=== PATIENT | female | born 1985 ===

== ENCOUNTER 2025-01-11 14:54 | Emergency (ER) | payer SELFPAY ==
[2025-01-11 15:00] VITALS: RESP 20
--- NOTE | 2025-01-11 15:41 | XR ---
EXAMINATION TYPE: XR wrist complete LT DATE OF EXAM: 01/11/2025 3:27 PM COMPARISON: None CLINICAL INDICATION: Female, 39 years old with history of pain, pain TECHNIQUE: XR wrist complete LT; examined in the Frontal, navicular, lateral, and oblique. FINDINGS: No acute osseous pathology, joint dislocation, or joint effusion. No evidence of any soft tissue swelling is seen. IMPRESSION: No acute osseous pathology. [facility], , 01/11/2025 3:39 PM
[2025-01-11] MEDS: ACETAMINOPHEN TAB 500 MG TAB PO STA (15:44)
[2025-01-11] MEDS: IBUPROFEN 800 MG TAB PO STA (15:44)
--- NOTE | 2025-01-11 15:50 | ED ---
Extremity Problem HPI - General Chief complaint: Recheck/Abnormal Lab/Rx Stated complaint: Urogenital Time Seen by Provider: 01/11/25 15:03 Source: patient, RN notes reviewed Mode of arrival: ambulatory Limitations: no limitations - History of Present Illness Initial comments: This is a 39-year-old female who presents to the emergency department problems with breast milk production and left wrist pain. 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 She has an 8-week-old baby that she is providing breast milk for, however because she is in the custody of [facility], they do not have a very good diet, which they believe is causing her milk production to go down. They are requesting a written prescription for a better diet as well as vitamins. Additionally, patient reports left wrist pain for the last couple of days. Denies any injuries. Pain is worse when she tries to move her thumb. - Related Data Previous Rx's Medication Instructions Recorded Acetaminophen Tab [Tylenol Tab] 1,000 mg PO Q6HR PRN #30 tablet 01/11/25 Ibuprofen [Motrin] 800 mg PO Q8H PRN #30 tab 01/11/25 Vit No.179/Iron/Folic 1 each PO DAILY #30 tab 01/11/25 [ Tablet] Allergies Allergy/AdvReac Type Severity Reaction Status Date / Time No Known Allergies Allergy Verified 01/11/25 15:00 Review of Systems ROS Statement: Those systems with pertinent positive or pertinent negative responses have been documented in the HPI. ROS Other: All systems not noted in ROS Statement are negative. Past Medical History Past Medical History: No Reported History History of Any Multi-Drug Resistant Organisms: None Reported Past Surgical History: No Surgical Hx Reported Past Psychological History: No Psychological Hx Reported Smoking Status: Never smoker Past Alcohol Use History: None Reported Past Drug Use History: None Reported General Exam Limitations: no limitations General appearance: alert, in no apparent distress Head exam: Present: atraumatic, normocephalic, normal inspection Respiratory exam: Present: normal lung sounds bilaterally. Absent: respiratory distress, wheezes, rales, rhonchi, stridor Cardiovascular Exam: Present: regular rate, normal rhythm Extremities exam: Present: other (Mild tenderness over the left lateral malleolus. Full range of motion. Positive Peewee test. 2+ radial pulses) Neurological exam: Present: alert, oriented X3, CN II-XII intact Psychiatric exam: Present: normal affect, normal mood Skin exam: Present: warm, dry, intact, normal color. Absent: rash Course Vital Signs 01/11/25 01/11/25 14:57 16:21 Temperature 98 F 98.2 F Pulse Rate 66 72 Respiratory 20 20 Rate Blood Pressure 128/89 126/86 O2 Sat by Pulse 99 99 Oximetry Medical Decision Making - Medical Decision Making This is a 39-year-old female who presents to the emergency department for left wrist pain. Was pt. sent in by a medical professional or institution? @ -No Did you speak to anyone other than the patient for history? @ -[employer] officers advised what they needed written down for her diet. Did you review nursing and triage notes? @ -Yes, and I agree, it is accurate with regards to the patient's symptoms. Were old charts reviewed? @ -No Differential Diagnosis? @ -Differential Musculoskeletal Muscular strain, contusion, ligament sprain, fracture, arthritis, septic arthritis, bursitis, cellulitis, muscle spasm, nerve compression, DVT, arterial occlusion, herpes zoster, electrolyte abnormality, tumor.... This is not meant to be in all inclusive list EKG interpreted by me (3pts min.)? @ -Not obtained X-rays interpreted by me (1pt min.)? @ -X-ray of the left wrist obtained. My interpretation identifies no acute fractures. CT interpreted by me (1pt min.)? @ -Not obtained U/S interpreted by me (1pt. min.)? @ -Not obtained What testing was considered but not performed? (CT, X-rays, U/S, labs)? Why? @ -None What meds were considered but not given? Why? @ -None Did you discuss the management of the patient with other professionals? @ -No Did you reconcile home meds? @ -No Was smoking cessation discussed for >3mins.? @ -No Was critical care preformed (if so, how long)? @ -No Were there social determinants of health that impacted care today? How? (Homelessness, low income, unemployed, alcoholism, drug addiction, transportation, low edu. Level, literacy, decrease access to med. care, long term, rehab)? @ -No Was there de-escalation of care discussed even if they declined? (Discuss DNR or withdrawal of care, Hospice)? @ -No What co-morbidities impacted this encounter? (DM, HTN, Smoking, COPD, CAD, Cancer, CVA, Hep., AIDS, mental health diagnosis, sleep apnea, morbid obesity)? @ -None Was patient admitted / discharged? @ -Discharged. X-ray of the left wrist obtained revealing no acute findings. Symptoms may be related to a de Quervain's tenosynovitis or other soft tissue problem. Ibuprofen and Tylenol administered in the emergency department. Prescription for ibuprofen, Tylenol, and vitamins provided. [employer] officers advised that they just needed something written down saying that the patient would require a vegan protein rich diet to aid in breast milk production. This was written on a sheet of prescription paper and sent with the C[employer] officers. Patient discharged in [facility] custody in stable condition. Case discussed with ED attending Dr. Anne. Return precautions reviewed in depth, the patient is instructed to return to the emergency department with any new, worsening, or concerning symptoms. Patient verbalized understanding. Undiagnosed new problem with uncertain prognosis? @ -None Drug Therapy requiring intensive monitoring for toxicity (Heparin, Nitro, Insulin, Cardizem)? @ -None Were any procedures done? @ -None Diagnosis/symptom? @ -Left wrist pain, breast-feeding status of mother Acute, or Chronic, or Acute on Chronic? @ -Acute Uncomplicated (without systemic symptoms) or Complicated (systemic symptoms)? @ -Uncomplicated Side effects of treatment? @ -None Exacerbation, Progression, or Severe Exacerbation] @ -Not applicable Poses a threat to life or bodily function? @ -No - Radiology Data Radiology results: report reviewed, image reviewed Disposition Clinical Impression: Left wrist pain, Breast feeding status of mother Disposition: HOME SELF-CARE Instructions (If sedation given, give patient instructions): Wrist Sprain (ED) Additional Instructions: Return to the emergency department with any new, worsening, or concerning symptoms. Alternate with ibuprofen and Tylenol as needed for discomfort. Prescriptions: Ibuprofen [Motrin] 800 mg PO Q8H PRN #30 tab PRN Reason: Pain Vit No.179/Iron/Folic [ Tablet] 1 each PO DAILY #30 tab Acetaminophen Tab [Tylenol Tab] 1,000 mg PO Q6HR PRN #30 tablet PRN Reason: Pain Is patient prescribed a controlled substance at d/c from ED?: No Referrals: Nonstaff,Physician [Primary Care Provider] - 1-2 days Time of Disposition: 16:09
[2025-01-11 16:22] VITALS: BP 126/86; PULSE 72; TEMP 98.2
== END 2025-01-11 16:32 | disposition home or self-care (01) ==
LOC: EC 14:54
DX: M25.532 Pain in left wrist (principal)
CPT/HCPCS: 99283